=== PATIENT | male | born 1965 | race Caucasian/White ===

== ENCOUNTER → 2016-11-18 | Outpatient (CLI) | payer BC ==
[~2016-11-18] MED LIST: ESOM20CA PO; LEVO50TA PO; XRL15 PO; XRL20 PO
--- NOTE | 2016-11-18 21:19 | DIAGNOSTIC IMAGING REPORT ---
BILATERAL LOWER EXTREMITY VENOUS DOPPLER CLINICAL HISTORY: Bilateral leg numbness. COMPARISON STUDY: Bilateral lower extremity venous Doppler July 14, 2016. TECHNIQUE: Sonography of the deep venous system of the bilateral lower extremities was performed. Compression and augmentation were evaluated. FINDINGS: The right common femoral, superficial femoral and popliteal veins are patent. There is minimal thrombus within the right peroneal vein which was shown on exam of July 14, 2016. This likely reflects chronic thrombus. There is no evidence for acute deep venous thrombus within the right lower extremity. There is extensive occlusive superficial thrombus within the right greater saphenous vein which extends from the level of the distal calf to distal thigh. This was shown on exam of July 14, 2016. There is a right popliteal cyst. There is no deep venous thrombus within the left lower extremity. Note is made of superficial thrombus within a superficial vein of the mid to distal left calf. This is also shown on exam of July 14, 2016. IMPRESSION: 1. No evidence for acute deep venous thrombus within either lower extremity. 2. Extensive superficial thrombus within the right greater saphenous vein and small amount of superficial thrombus within the left calf. Similar findings were shown on exam of July 14, 2016. The findings are age indeterminate but probably chronic. 3. Small amount of thrombus within the right peroneal vein which is unchanged and likely chronic. Electronically signed by: Matthew Noble M.D. 11/18/2016 9:18 PM Dictated Date/Time: 11/18/2016 9:13 PM
== END | disposition home or self-care (01) ==
LOC: C.ULTR 19:54
PROVIDERS: ATTEND Family Medicine
DX: R20.0 Anesthesia of skin (principal); I82.811 Embolism and thrombosis of superficial veins of right lower extremity

== ENCOUNTER → 2017-02-03 | Outpatient (CLI) | payer OTHER, BC ==
[~2017-02-03] MED LIST changes: +OPTIRAY 320 IV PRN
--- NOTE | 2017-02-03 08:30 | DIAGNOSTIC IMAGING REPORT ---
CT ANGIOGRAM OF THE CHEST CLINICAL HISTORY: Pulmonary embolism. Follow-up study. COMPARISON STUDY: July 14, 2016 TECHNIQUE: Following the IV administration of 115 mL of Optiray-320, CT angiogram of the thorax was performed from the thoracic inlet to the lung bases utilizing the pulmonary embolus protocol. Images are reviewed in the axial, sagittal, and coronal planes. IV contrast was administered without complication. MIP imaging was performed. A dose lowering technique was utilized adhering to the principles of ALARA. CT DOSE: 402.96 mGy.cm FINDINGS: No pathologically enlarged axillary mediastinal or hilar lymph nodes were visualized. There was no evidence of thoracic aortic dilatation. There were no pulmonary artery filling defects to indicate acute pulmonary embolism. No pleural effusions are visualized. The study is degraded due to respiratory motion artifact. There are dependent atelectatic changes. There is no lobar consolidation. There is a stable 6 mm solid pulmonary nodule within the lingula. IMPRESSION: 1. No evidence of pulmonary embolism 2. Stable 6 mm solid pulmonary nodule within the lingula. A 12 month follow-up CT scan is recommended. Please refer to below summary of Fleischner criteria recommendations for follow-up of incidental CT nodules (Sagrario Vasquez, Guidelines for management of small pulmonary nodules detected on CT scans: A statement from the Fleischner Society, Radiology 237: [phone].) SOLID NODULES Solitary nodule size: <6 mm * low risk patients: no follow-up needed * high risk patients: optional CT at 12 months Solitary nodule size: 6-8 mm * low risk patients: follow-up at 6-12 months, then consider further follow-up at 18-24 months * high risk patients: initial follow-up CT at 6-12 months and then at 18-24 months if no change Solitary nodule size: >8 mm * either low or high risk patients - consider follow-up CT at 3 months, and/or CT-PET, and/or biopsy Multiple nodules size: <6 mm * low risk patients: no routine follow-up * high risk patients: optional CT at 12 months Multiple nodules size: 6-8 mm * low risk patients: follow-up at 3-6 months, then consider further follow-up at 18-24 months * high risk patients: follow-up at 3-6 months, then at 18-24 months if no change Multiple nodules size: >8 mm * low risk patients: follow-up at 3-6 months, then consider further follow-up at 18-24 months * high risk patients: follow-up at 3-6 months, then at 18-24 months if no change Note: newly detected indeterminate nodule in persons 35 years of age or older. * low risk patients: minimal or absent history of smoking and/or other known risk factors * high risk patients: history of smoking or of other known risk factors (e.g. first degree relative with lung cancer, or exposure to asbestos, radon, uranium) * if a nodule up to 8 mm is partly solid or is ground glass further follow-up is required after 24 months to exclude possible slow growing adenocarcinoma (JESSE) SUBSOLID NODULES Solitary pure ground-glass nodule * nodule size <6 mm - no CT follow-up required * nodule size >=6 mm - follow-up CT at 6-12 months, then every 2 years until 5 years Solitary part-solid nodule * nodule size <6 mm - no CT follow-up required * nodule size >=6 mm - follow-up CT at 3-6 months. If unchanged, and solid component remains <6 mm, then annual follow-up for 5 years Multiple subsolid nodules * nodule size <6 mm - follow-up CT at 3-6 months, consider further follow-up at 2 and 4 years if stable * nodule size >=6 mm - follow-up CT at 3-6 months, subsequent management based on the most suspicious nodule(s) Electronically signed by: Philip Patel M.D. 02/03/2017 8:28 AM Dictated Date/Time: 02/03/2017 8:07 AM
== END | disposition home or self-care (01) ==
LOC: C.CTS 07:47
PROVIDERS: ATTEND Internal Medicine Hematology & Oncology
DX: Z09 Encounter for follow-up examination after completed treatment for conditions other than malignant neoplasm (principal); Z86.711 Personal history of pulmonary embolism

== ENCOUNTER → 2017-03-01 | Outpatient (CLI) | payer BC ==
[~2017-03-01] MED LIST changes: -OPTIRAY 320 IV PRN
--- NOTE | 2017-03-01 12:20 | DIAGNOSTIC IMAGING REPORT ---
L HIP UNILATERAL 2 VIEWS HISTORY: 51 years-old Male M79.605,R42,R76.11 acute left hip pain without reported trauma COMPARISON: Sacrum and coccyx radiographs 04/05/2007 TECHNIQUE: 2 views of the left hip FINDINGS: Mild degenerative changes of the left femoral acetabular joint. No acute fracture or dislocation. There are phleboliths of the left hemipelvis. IMPRESSION: Mild degenerative changes without acute fracture or subluxation. The above report was generated using voice recognition software. It may contain grammatical, syntax or spelling errors. Electronically signed by: Delmar Andujar M.D. 03/01/2017 12:19 PM Dictated Date/Time: 03/01/2017 12:18 PM
== END | disposition home or self-care (01) ==
LOC: C.RAD1850 11:50
PROVIDERS: ATTEND Family Medicine
DX: M79.605 Pain in left leg (principal); R42 Dizziness and giddiness; R76.11 Nonspecific reaction to tuberculin skin test without active tuberculosis

== ENCOUNTER 2017-03-12 16:19 | Emergency (ER) | payer BC, OTHER ==
[~2017-03-12] VITALS: Ht 195.6 cm; Wt 109.1 kg
[2017-03-12 16:22] VITALS: TEMP 36.3; Ht 195.6 cm; Wt 109.1 kg
[2017-03-12] MEDS ORDERED: OMEG10007 PO (16:49)
[2017-03-12] MEDS ORDERED: MULT-506 PO (16:49)
[2017-03-12] MEDS ORDERED: LEVO75TA PO (16:49)
[2017-03-12] MEDS ORDERED: ASPI81TA28 PO (16:49)
--- NOTE | 2017-03-12 17:04 | DIAGNOSTIC IMAGING REPORT ---
CHEST ONE VIEW PORTABLE CLINICAL HISTORY: 51 years-old Male presenting with chest pain. TECHNIQUE: Portable upright AP view of the chest was obtained. COMPARISON: CT from 02/03/2017 and chest x-ray from 07/14/2016. FINDINGS: Atherosclerosis of the aortic arch. Cardiac silhouette normal in size. Lungs and pleural spaces clear. Degenerative changes of the thoracic spine. Upper abdomen normal. IMPRESSION: 1. No acute cardiopulmonary disease. Electronically signed by: Darryn Pemberton M.D. 03/12/2017 5:03 PM Dictated Date/Time: 03/12/2017 5:01 PM
[2017-03-12 17:22] VITALS: O2SAT 98
[2017-03-12 17:41] LABS: BASO % 0.8 %; BASO ABS # 0.05 K/uL (0-0.2); EOS % 8.8 %; EOS ABS # 0.55 K/uL (0-0.5); HEMATOCRIT 45.2 % (42-52); HEMOGLOBIN 15.8 g/dL (14.0-18.0); IG# 0.01 K/uL (0.00-0.02); LYMPH % 27.5 %; LYMPH ABS # 1.71 K/uL (1.2-3.4); MEAN CELL VOLUME 90.4 fL (80-100); MEAN CORPUSCULAR HEMOGLOBIN 31.6 pg (25-34); MONO % 7.4 %; MONO ABS # 0.46 K/uL (0.11-0.59); NEUT % 55.3 %; NEUT ABS # 3.44 K/uL (1.4-6.5); PLATELET COUNT 204 K/uL (130-400); RED CELL DISTRIBUTION WIDTH CV 13.5 % (11.5-14.5); RED CELL DISTRIBUTION WIDTH SD 44.4 fL (36.4-46.3); WHITE BLOOD COUNT 6.22 K/uL (4.8-10.8)
[2017-03-12 18:08] LABS: ALBUMIN 3.9 gm/dl (3.4-5.0); ALKALINE PHOSPHATASE 79 U/L (45-117); ALT/SGPT 34 U/L (12-78); AST/SGOT 23 U/L (15-37); BLOOD UREA NITROGEN 17 mg/dl (7-18); CALCIUM 9.1 mg/dl (8.5-10.1); CARBON DIOXIDE 26 mmol/L (21-32); CKMB 0.9 ng/ml (0.5-3.6); CREATININE 1.22 mg/dl (0.60-1.40); GLUCOSE 106 mg/dl (70-99); POTASSIUM 3.7 mmol/L (3.5-5.1); SODIUM 139 mmol/L (136-145); TOTAL PROTEIN 7.7 gm/dl (6.4-8.2)
--- NOTE | 2017-03-12 18:36 | DIAGNOSTIC IMAGING REPORT ---
VENOUS DOPPLER LWR EXT BILA HISTORY: Pain. Edema. L and R leg pain, hx DVT and PE COMPARISON STUDY: 11/18/2016 FINDINGS: Chronic superficial thrombophlebitis unchanged in distribution compared to the prior study. All major deep venous structures are intact. IMPRESSION: No evidence for acute deep venous thrombosis. Chronic superficial thrombophlebitis unchanged from the prior exam. The above report was generated using voice recognition software. It may contain grammatical, syntax or spelling errors. Electronically signed by: Kevon Carvajal M.D. 03/12/2017 6:35 PM Dictated Date/Time: 03/12/2017 6:34 PM
[2017-03-12 18:55] VITALS: O2SAT 95
[2017-03-12] MEDS ORDERED: OPTIRAY 320 IV PRN (19:15)
--- NOTE | 2017-03-12 19:21 | DIAGNOSTIC IMAGING REPORT ---
(CHEST FOR PE) ANGIO WITH CT DOSE: 447.74 mGy.cm HISTORY: Chest pain dyspnea TECHNIQUE: Multiaxial CT images of the chest were performed following the intravenous administration of contrast to evaluate the pulmonary arteries. Maximal intensity projection images were also obtained. A dose lowering technique was utilized adhering to the principles of ALARA. COMPARISON STUDY: 02/03/2017 FINDINGS: There is a normal caliber thoracic aorta with no evidence for dissection. There is no evidence for pulmonary embolus. No pleural effusions. No pneumothorax. The liver and spleen are unremarkable. No mediastinal or hilar lymphadenopathy. The central airways are patent. The lungs are clear. This study is unchanged from the prior exam. No evidence for pulmonary embolus. Stable 6 mm nodule of the lingula. No focal infiltrate. IMPRESSION: 1. Study is negative for pulmonary embolus. 2. Lungs are grossly clear. 3. Stable 6 mm nodule of the lingula The above report was generated using voice recognition software. It may contain grammatical, syntax or spelling errors. Electronically signed by: Kevon Carvajal M.D. 03/12/2017 7:20 PM Dictated Date/Time: 03/12/2017 7:19 PM
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
[2017-03-12 20:50] VITALS: BP 126/72; PULSE 65
== END 2017-03-12 20:51 | disposition home or self-care (01) ==
LOC: C.EDB 16:20
DX: M79.605 Pain in left leg (principal); R07.9 Chest pain, unspecified; E03.9 Hypothyroidism, unspecified; Z86.718 Personal history of other venous thrombosis and embolism; Z86.711 Personal history of pulmonary embolism; Z98.890 Other specified postprocedural states; Z79.82 Long term (current) use of aspirin; Z79.899 Other long term (current) drug therapy

== ENCOUNTER 2017-03-31 08:01 | Emergency (ER) | payer OTHER ==
[~2017-03-31] VITALS: Ht 195.6 cm; Wt 109.7 kg
[~2017-03-31 08:01] MED LIST changes: +ASPI81TA28 PO; -ESOM20CA PO; -LEVO50TA PO; +LEVO75TA PO; +MULT-506 PO; +OMEG10007 PO; -XRL15 PO; -XRL20 PO
[2017-03-31 08:07] VITALS: TEMP 36.5; Ht 195.6 cm; Wt 109.7 kg
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
--- NOTE | 2017-03-31 09:54 | DIAGNOSTIC IMAGING REPORT ---
RIGHT LOWER EXTREMITY VENOUS DOPPLER CLINICAL HISTORY: Right lower extremity pain. COMPARISON STUDY: Bilateral lower extremity venous Doppler March 12, 2017. TECHNIQUE: Sonography of the deep venous system of the right lower extremity was performed. Compression and augmentation were evaluated. FINDINGS: The right common femoral, superficial femoral and popliteal veins were compressible. Augmentation was normal. Flow was shown within the deep calf vessels. Superficial thrombus is again noted within the right greater saphenous vein within the mid to distal right calf. This is similar to exam of March 12, 2017. IMPRESSION: 1. No evidence of deep venous thrombus within the right lower extremity. 2. No significant change in superficial thrombus within the right greater saphenous vein since exam of March 12, 2017. Electronically signed by: Matthew Noble M.D. 03/31/2017 9:53 AM Dictated Date/Time: 03/31/2017 9:47 AM
[2017-03-31] MEDS ORDERED: CEPH500C PO (10:26)
[2017-03-31] MEDS ORDERED: SULF800T23 PO (10:26)
[2017-03-31 10:36] VITALS: BP 129/84; PULSE 81; O2SAT 94
== END 2017-03-31 10:38 | disposition home or self-care (01) ==
LOC: C.EDB 08:02
DX: I80.9 Phlebitis and thrombophlebitis of unspecified site (principal); E03.9 Hypothyroidism, unspecified; Z86.718 Personal history of other venous thrombosis and embolism; Z98.890 Other specified postprocedural states; Z79.899 Other long term (current) drug therapy